=== PATIENT | female | born 1940 | race Caucasian/White ===

== ENCOUNTER → 2021-09-20 17:38 | Outpatient (BNVA) | payer MEDICARE, MEDICAID, SELFPAY | PROVIDERS: Visit Provider Emergency Medicine | DX: R60.9 Edema, unspecified (principal); L03.90 Cellulitis, unspecified; I50.9 Heart failure, unspecified; N39.0 Urinary tract infection, site not specified | CPT/HCPCS: 81000; 85025; 87077; 87086; 87184 ==